=== PATIENT | male | born 1940 | race Caucasian/White ===

== ENCOUNTER 2020-06-21 19:42 | Inpatient (IN) | payer MEDICARE, MEDICAID ==
[~2020-06-21] VITALS: Ht 177.8 cm; Wt 71.7 kg
--- NOTE | 2020-06-21 20:18 | NUR ---
CALLED PHARMACY FOR MEDICATION: WINSOME
[2020-06-21 20:21] LABS: BASOPHILS % (AUTO) 0.6 % (0.0-2.0); EOSINOPHILS % (AUTO) 3.7 % (0.0-6.0); HEMATOCRIT 35 % (39-51); HEMOGLOBIN 11.5 g/dL (13.5-17.5); LYMPHOCYTES # (AUTO) 1.2 /CMM (0.8-4.8); LYMPHOCYTES % (AUTO) 21.7 % (20.0-44.0); MEAN CORPUSCULAR HGB CONC 33 g/dl (31.0-36.0); MEAN CORPUSCULAR VOLUME 86 fL (80-96); MONOCYTES # (AUTO) 0.5 /CMM (0.1-1.30); MONOCYTES % (AUTO) 8.8 % (2.0-12.0); NEUTROPHILS # (AUTO) 3.7 /CMM (1.8-8.9); NEUTROPHILS % (AUTO) 65.2 % (43.0-81.0); PLATELET COUNT (AUTO) 334 /CMM (150-450); RED BLOOD CELL COUNT(AUTO) 4.06 MIL/uL (4.5-6.0); WHITE BLOOD COUNT (AUTO) 5.7 K/uL (4.3-11.0)
--- NOTE | 2020-06-21 20:22 | NUR ---
PER MD, NO BLOOD CULTURES REQUIRED.
--- NOTE | 2020-06-21 20:25 | NUR ---
PT BIB EMS TO ER BED 10 FROM [facility] FOR LEFT LEG CELLULITS. PATIENT IS AAOX3. HX OF DEMENTIA. LEFT LEG IS SWOLLEN WITH REDNESS. PURULENT DRAINAGE ON LEFT BEAL. PT IS BREATHING EVENLY AND UNLABORED ON ROOM AIR. CONNECTED TO MONITOR.
[2020-06-21] MEDS ORDERED: IV NS 0.9% 500 ML BAG IV ONE (20:30)
[2020-06-21] MEDS ORDERED: CEFAZOLIN 2 GM in IV D5W 100 ML IV ONE (20:30)
[2020-06-21 20:34] LABS: ALBUMIN 3.2 g/dL (3.4-5.0); BILIRUBIN,DIRECT 0.2 mg/dL (0.0-0.2); BILIRUBIN,TOTAL 0.5 mg/dL (0.2-1.0); CALCIUM, SERUM 9.1 mg/dL (8.5-10.1); CREATININE 0.9 mg/dL (0.6-1.3); POTASSIUM 3.9 mmol/L (3.5-5.1); TOTAL PROTEIN, SERUM 7.8 g/dL (6.4-8.2)
--- NOTE | 2020-06-21 20:57 | NUR ---
DR. ALEXANDRA SPEAKING WITH DR. BENSON
[2020-06-21] MEDS ORDERED: MORPHINE SULFATE INJ 2 MG/ML DISP.SYRIN IV PRN (21:30)
[2020-06-21] MEDS ORDERED: HYDROCODONE/APAP 5/325MG TABLET PO PRN (21:30)
[2020-06-21] MEDS ORDERED: ACETAMINOPHEN 325 MG TABLET PO PRN (21:30)
[2020-06-21] MEDS ORDERED: ZOLPIDEM TARTRATE 5 MG TABLET PO PRN (21:30)
[2020-06-21] MEDS ORDERED: Z GUARD REMEDY 2 OZ OINT TP PRN (21:30)
[2020-06-21] MEDS ORDERED: MAG HYDROX/AL HYDROX/SIMETH 30 ML UDC PO PRN (21:30)
[2020-06-21] MEDS ORDERED: MAGNESIUM HYDROXIDE 30 ML UDC PO PRN (21:30)
[2020-06-21] MEDS ORDERED: ONDANSETRON HCL/PF 4 MG/2 ML VIAL IVP PRN (21:30)
--- NOTE | 2020-06-21 21:32 | NUR ---
BED ASSIGNMENT 109
--- NOTE | 2020-06-21 21:43 | NUR ---
REPORT GIVEN TO BRANDEN NELSON FOR SHANA.
--- NOTE | 2020-06-21 21:55 | NUR ---
RN NOTE PT ARRIVED FROM ER VIA GURNEY ACCOMPANIED BY RN AND EMT. PT IS ON ROOM AIR. RESPIRATIONS UNLABORED, ALERT AND ORIENTED X 3 BUT WITH FORGETFULNESS. ORIENTED TO FACILITY. VITAL SIGNS CHECKED, COMPREHENSIVE PHYSICAL ASSESSMENT COMPLETED. 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 PICTURES TAKEN. WITH RIGHT AC 18G IV PATENT AND FLUSHING WELL. PLAN OF CARE DISCUSSED, CALL LIGHT WITHIN REACH, SAFETY MEASURES IN PLACE PER PROTOCOL, BED ALARM ON, BED LOCKED AND IN LOW POSITION, SIDE RAILS UP X 3, WILL MONITOR NEW ADMISSION.
--- NOTE | 2020-06-21 21:55 | NUR ---
PATIENT TAKEN TO ASSIGNED ROOM.
[2020-06-21 22:00] VITALS: BP 126/78
--- NOTE | 2020-06-22 01:00 | NUR ---
RN NOTE PT ANGRY AND REMOVED KERLIX DRESSING ON LEFT LOWER LEG. OFFERED TO WRAP NEW DRESSING BUT PT REFUSED STATING THAT IT MAKES HIS FEEL MORE UNCOMFORTABLE.
[2020-06-22] MEDS ORDERED: CEFAZOLIN 1 GM ONE (02:58)
--- NOTE | 2020-06-22 04:00 | NUR ---
RN NOTE PT STRONGLY REFUSED TO HAVE 0400 VITAL SIGNS TAKEN.
[2020-06-22] MEDS: CEFAZOLIN 2 GM in IV D5W 100 ML IV SCH ×3 (04:44→20:11)
--- NOTE | 2020-06-22 04:45 | NUR ---
RN NOTE WITH ORDER FOR ANCEF 2GM IV. MED NOT IN OMNICELL AND NURSING ELEMENTARY SCHOOL PROFESSIONAL IS ONLY ABLE TO OBTAIN ONE 1GM VIAL FROM THE NIGHT LOCKER AND ENTIRE HOSPITAL. NOTIFIED DR. BENSON WHO STATES TO MAKE A ONE TIME ORDER FOR ANCEF 1G AND THEN CONTINUE WITH 2GM WITH EACH SUCCEEDING SCHEDULE WHEN PHARMACY IS HERE. ORDER NOTED AND CARRIED OUT.
--- NOTE | 2020-06-22 04:48 | NUR ---
RN NOTE PT STRONGLY REFUSED AM CARE AND LINEN CHANGE. PT SCREAMED "DON'T TOUCH ME."
[2020-06-22] MEDS ORDERED: CEFAZOLIN 1 GM in IV D5W 50 ML IV ONE (05:00)
--- NOTE | 2020-06-22 05:08 | NUR ---
RN NOTE MYSTERY SHOPPER AT BEDSIDE OFFERING TO DRAW BLOOD FOR AM LABS. PT STRONGLY REFUSED. EXPLAINED RISKS VS ADVANTAGES BUT PT IS YELLING "LEAVE ME ALONE. DON'T TOUCH ME!" Addendum: 06/22/20 at 0511 by BRANDEN GALLEGO RN LAB WILL COME AND TRY AGAIN LATER.
--- NOTE | 2020-06-22 05:31 | NUR ---
RN NOTE PT NOTED TO HAVE PULLED OUT RIGHT AC # 18G IV. WHEN ASKED WHY, THE PT STATES THAT THE TAPE WAS BOTHERING HIM. OFFERED TO INSERT NEW LINE AND EXPLAINED IMPORTANCE FOR MEDICATION ADMINISTRATION AND PAIN MANAGEMENT BUT PT STATES "I DON'T WANT ANYTHING IN ME! I'M SICK OF THIS. I'M GOING TO LEAVE THIS HOSPITAL. LEAVE ME ALONE." Addendum: 06/22/20 at 0616 by BRANDEN GALLEGO RN PT AGREED TO HAVE NEW LINE INSERTED IF PAIN IS LESSENED. ADMINISTERED NORCO PO FOR MODERATE PAIN PRN ORDERED. WILL COME BACK AND OFFER TO INSERT NEW LINE.
--- NOTE | 2020-06-22 06:42 | NUR ---
RN NOTE ABLE TO INSERT 22G IV ON LEFT HAND.
[2020-06-22 08:00] VITALS: BP 134/77
[2020-06-22] MEDS ORDERED: ACET325T53 PO (08:27)
[2020-06-22] MEDS ORDERED: ASCO500C17 PO (08:27)
[2020-06-22] MEDS ORDERED: MAGN400O6 PO (08:27)
[2020-06-22] MEDS ORDERED: MULT-439 PO (08:27)
[2020-06-22] MEDS ORDERED: QUET25TA PO (08:27)
[2020-06-22] MEDS ORDERED: CALC-883 PO (08:27)
[2020-06-22] MEDS ORDERED: ZINC220C6 PO (08:27)
[2020-06-22] MEDS ORDERED: AMIN887L PO (08:27)
[2020-06-22] MEDS ORDERED: HYDR-4303 PO (08:27)
[2020-06-22] MEDS ORDERED: FURO-145 PO (08:27)
[2020-06-22] MEDS ORDERED: CALC355O18 PO (08:27)
[2020-06-22 08:46] LABS: BASOPHILS % (AUTO) 0.9 % (0.0-2.0); EOSINOPHILS % (AUTO) 4.9 % (0.0-6.0); HEMATOCRIT 32 % (39-51); HEMOGLOBIN 10.6 g/dL (13.5-17.5); LYMPHOCYTES # (AUTO) 1.1 /CMM (0.8-4.8); LYMPHOCYTES % (AUTO) 22.6 % (20.0-44.0); MEAN CORPUSCULAR HGB CONC 33 g/dl (31.0-36.0); MEAN CORPUSCULAR VOLUME 87 fL (80-96); MONOCYTES # (AUTO) 0.6 /CMM (0.1-1.30); NEUTROPHILS # (AUTO) 2.8 /CMM (1.8-8.9); NEUTROPHILS % (AUTO) 58.6 % (43.0-81.0); PLATELET COUNT (AUTO) 301 /CMM (150-450); RED BLOOD CELL COUNT(AUTO) 3.72 MIL/uL (4.5-6.0); WHITE BLOOD COUNT (AUTO) 4.8 K/uL (4.3-11.0)
[2020-06-22 09:21] LABS: THYROID STIMULATING HORMONE 1.918 uIU/mL (0.358-3.74)
--- NOTE | 2020-06-22 09:25 | NUR ---
PATIENT IS VERY AGITATED, WALKING AROUND ROOM/ CONSTANTLY CURSING AND ATTEMPTING TO HIT STAFF. SECURITY CALLED. RESTRAINTS PLACED AND MD INFORMED. PATIENT STATED THAT THEY ARE IN PAIN. MORPHINE WAS NOT GIVEN DUE TO PATIENT'S IV BEING INFILTRATED. EXPLAINED TO PATIENT THAT A NEW IV LINE NEEDS TO BE PLACED FOR THE PAIN MEDICATION TO BE GIVEN HOWEVER PATIENT CONTINUES TO TRY TO PHYSICAL HIT NURSE AND CURSE, STATING "NO, YOU SON OF A BITCH". AWAITING MD RESPONSE.
[2020-06-22] MEDS ORDERED: HALOPERIDOL LACTATE INJ 5 MG/ML VIAL IM ONE ×2 (10:00→15:30)
[2020-06-22 11:37] LABS: CALCIUM, SERUM 8.6 mg/dL (8.5-10.1); CREATININE 0.9 mg/dL (0.6-1.3); MAGNESIUM 2.3 mg/dL (1.8-2.4); PHOSPHORUS 3.6 mg/dL (2.5-4.9); POTASSIUM 3.8 mmol/L (3.5-5.1)
--- NOTE | 2020-06-22 12:39 | NUR ---
PATIENT CONTINUES TO BE IRRITATED/AGITATED. REFUSED TO ALLOW NEW IV SITE TO GIVE ANTIBIOTIC. WHEN INSTRUCTING THE PATIENT THAT THE ANTIBIOTICS ARE NEEDED TO HEAL HIS FOOT, HE REFUSED THE MEDICATION AND STATED "LEAVE ME ALONE".
--- NOTE | 2020-06-22 13:22 | NUR ---
PATIENT REFUSING PERSONAL/HYGIENE CARE. STATING TO "LEAVE ME THE FUCK ALONE AND GET OUT".
[2020-06-22] MEDS ORDERED: HALOPERIDOL LACTATE INJ 5 MG/ML VIAL IM PRN (14:00)
[2020-06-22] MEDS: QUETIAPINE FUMARATE 25 MG TABLET PO SCH (16:23)
--- NOTE | 2020-06-22 19:01 | NUR ---
PT CONTINUES TO REFUSE ALL CARE. ENDORSED PATIENT TO DOCK OPERATIONS SUPERVISOR NURSE FOR SHANA.
--- NOTE | 2020-06-22 20:45 | NUR ---
MS-1/EMAIL MARKETER NO MEANINGFUL NURSING ASSESSMENT CAN BE MADE AT THIS TIME. PT IS VERBALLY ABUSIVE AND PHYSICALLY AGGRESSIVE. PT REFUSING MEDICAL TREATMENT AT THIS TIME. PT SEEMS TO BE MORE DOCILE WHEN LEFT ALONE IN HIS ROOM. SITTER PRESENT AT DOORWAY TO MAINTAIN PT SAFETY. WE WILL CONTINUE TO MONITOR THE PT CLOSELY FOR HIS SAFETY. AWAITING PSYCH CONSULT ALL PAPERWORK HAVE BEEN FAXED. WILL CONTINUE TO MAINTAIN A SAFE ENVIRONMENT FOR THE PT UNTIL HE CAN BE EVALUATED BY THE PSYCH TEAM.
[2020-06-23] MEDS: CEFAZOLIN 2 GM in IV D5W 100 ML IV SCH (04:18)
--- NOTE | 2020-06-23 04:51 | NUR ---
MS-1/ESTATE ATTORNEY PT TRYING TO ENTER HALLWAY NAKED. VERBALLY ABUSING STAFF. I SET STRICT BOUNDARIES WITH THE PT THAT HE CAN NOT SPEAK TO US WITH FOUL LANGUAGE. PT IS BACK IN HIS ROOM. SITTER WATCHING PT FROM DOORWAY TO ENSURE PT SAFETY.
--- NOTE | 2020-06-23 06:43 | NUR ---
MS-1/JACK STRIP ASSEMBLER REPORT TO SOON RN FOR CONTINUITY OF CARE.
--- NOTE | 2020-06-23 07:58 | NUR ---
called to in take for crise team stated have to medicalley clear by MD , Notified to MD and stated that medically clear and nofified to intake
--- NOTE | 2020-06-23 08:35 | NUR ---
spoked to Shruthi [phone] re;case stated that will come to see him late nursing supervisor wound was notified
[2020-06-23] MEDS ORDERED: FUROSEMIDE 20 MG TABLET PO SCH (09:00)
--- NOTE | 2020-06-23 09:30 | NUR ---
patient able to take oral medication
[2020-06-23] MEDS: QUETIAPINE FUMARATE 25 MG TABLET PO SCH ×2 (09:41→16:55)
--- NOTE | 2020-06-23 10:10 | NUR ---
travis team came in at this time
--- NOTE | 2020-06-23 10:47 | NUR ---
able to assess patient now DX of cellulitis both leg, left leg open to air right leg is dry elevated with pillows
[2020-06-23 12:00] VITALS: BP 145/67
[2020-06-23] MEDS ORDERED: SULFAMETH/TRIMETH 800/160 MG 1 UDTAB TABLET PO SCH (12:00)
--- NOTE | 2020-06-23 12:00 | NUR ---
seen by and exam to patient at this time
[2020-06-23] MEDS ORDERED: CLINDAMYCIN HCL 150 MG CAPSULE PO SCH (13:00)
--- NOTE | 2020-06-23 13:03 | NUR ---
patient taken po medication well without problems
[2020-06-23 16:00] VITALS: BP_SYST 115; BP_SYST 150; BP_DIAS 74; BP_DIAS 79
[2020-06-23] MEDS ORDERED: QUETIAPINE FUMARATE 25 MG TABLET PO PRN (17:30)
--- NOTE | 2020-06-23 19:00 | NUR ---
condition unchanged from previous assessment Dr.Tim Truong came to see the patient and left leg dressing changed patient will go to room 212-2
[2020-06-23] MEDS ORDERED: Sulfameth/Trimeth 800/160 Mg PO (19:07)
[2020-06-23] MEDS ORDERED: CLIN-27 PO (19:07)
[2020-06-23] MEDS ORDERED: QUET25TA PO (19:07)
[2020-06-23] MEDS ORDERED: HALO5VIA9 IM (19:07)
--- NOTE | 2020-06-23 19:10 | NUR ---
RN OPENING NOTE RECEIVED PATIENT IN BED RESTING ALERT ORIENTED X2 VERBALLY RESPONSIVE ON ROOM AIR NO SOB NOT ACUTE DISTRESS NOTED,AMBULATORY WITH ASSIST CONTINENT TO BOWEL/BLADDER,PATIENT HAS SITTER ONE TO ONE,DUE TO AGITATION,SAFETY MEASURE IMPLEMENTED,BED IN LOW POSITION AND LOCKED,BED ALARM IS ON CONTINUE TO MONITOR.
--- NOTE | 2020-06-23 20:11 | NUR ---
RN NOTE LAB CALLED AND INFORMED CANCELLED HIS LABS BECAUSE HE REFUSED ALREADY THREE TIMES CONTINUE TO MONITOR.
--- NOTE | 2020-06-23 20:52 | NUR ---
RN NOTE GAVE REPORT TO ROCHELLE NELSON AT [facility] FOR CONTINUATION OF CARE
--- NOTE | 2020-06-23 20:56 | NUR ---
RN CLOSING NOTE PATIENT TRANSFERRED TO [facility] AT ROOM 212.
[2020-06-23] MEDS ORDERED: QUETIAPINE FUMARATE 25 MG TABLET PO SCH (21:00)
[2020-06-24] MEDS ORDERED: HALO5SYR IM (07:55)
[2020-06-24] MEDS ORDERED: QUET25TA PO ×2 (07:55)
[2020-06-24] MEDS ORDERED: ZOLP5TAB8 PO (07:55)
[2020-06-24] MEDS ORDERED: ASCO-352 PO (07:55)
[2020-06-24] MEDS ORDERED: MAG30ORA PO (07:55)
[2020-06-24] MEDS ORDERED: ALLA266C2 TP (07:55)
[2020-06-24] MEDS ORDERED: SULF1TAB48 PO (07:57)
[2020-06-24] MEDS ORDERED: CLIN150C2 PO (07:57)
== END 2020-06-23 21:00 | DRG 603 ==
LOC: ER 19:47 → TELE1 21:35 → MEDSG1 06-22 00:40
PROVIDERS: ADMIT Student in an Organized Health Care Education/Training Program; ATTEND Nurse Practitioner Acute Care
DX: L03.116 Cellulitis of left lower limb (principal); E44.1 Mild protein-calorie malnutrition; F05 Delirium due to known physiological condition; I10 Essential (primary) hypertension; E86.0 Dehydration; F03.90 Unspecified dementia, unspecified severity, without behavioral disturbance, psychotic disturbance, mood disturbance, and anxiety; Z91.81 History of falling; Z79.899 Other long term (current) drug therapy; F29 Unspecified psychosis not due to a substance or known physiological condition; D64.9 Anemia, unspecified; Z20.822 Contact with and (suspected) exposure to COVID-19
CPT/HCPCS: 36415; 80048-TC; 80061-TC; 80076-TC; 82962-TC; 83690-TC; 83735-TC; 84100-TC; 84443-TC; 85025-TC; 87081-TC; C9803; G0378; J0690; J1630; J2270; J7050; J7060; U0003

== ENCOUNTER 2020-06-23 19:35 | Inpatient (IN) | payer MEDICARE, OTHER ==
[~2020-06-23] VITALS: Ht 177.8 cm; Wt 69.9 kg
[~2020-06-23 19:35] MED LIST: ACET325T53 PO; AMIN887L PO; ASCO500C17 PO; CALC-883 PO; CALC355O18 PO; CLIN-27 PO; FURO-145 PO; HALO5VIA9 IM; HYDR-4303 PO; MAGN400O6 PO; MULT-439 PO; QUET25TA PO; Sulfameth/Trimeth 800/160 Mg PO; ZINC220C6 PO
[2020-06-23] MEDS ORDERED: BLOOD SUGAR DIAGNOSTIC 1 EACH STRIP IN ONE (21:00)
[2020-06-23] MEDS ORDERED: ACETAMINOPHEN 325 MG TABLET PO PRN (21:00)
[2020-06-23] MEDS ORDERED: MAGNESIUM HYDROXIDE 30 ML UDC PO PRN (21:00)
[2020-06-23] MEDS ORDERED: TEMAZEPAM 7.5 MG CAPSULE PO PRN (21:00)
[2020-06-23] MEDS ORDERED: MAG HYDROX/AL HYDROX/SIMETH 30 ML UDC PO PRN (21:00)
[2020-06-23] MEDS ORDERED: LORAZEPAM 0.5 MG TABLET PO PRN (21:00)
[2020-06-23 21:30] VITALS: BP 146/70
--- NOTE | 2020-06-23 21:30 | NUR ---
GPS CHEMIST ENZYMES NOTES: ADMITTED THIS 80-Y/O, MALE, FROM [facility], ORIGINALLY PATIENT CAME FROM [facility]. PATIENT ADMITTED ON 5150 DTO/GD. PER HOLD, PATIENT HAS BEEN AGITATED AND AGGRESSIVE ON THE MEDICAL FLOOR. PATIENT HAS BEEN CONFUSED AND VERBALLY ABUSIVE TO NURSING STAFF. UPON FACE TO FACE ASSESSMENT, PATIENT IS A&OX2, ANGRY AFFECT, VERBALLY ABUSIVE TOWARDS STAFF, EASILY GETS AGITATED. PATIENT WAS ADVISED OF HIS HOLD. PATIENT IS UNDER THE PSYCH CARE OF DR. LANZA AND THE MEDICAL CARE OF DR. OCONNOR. PT HANDBOOK GIVEN WITH PATIENT'S RIGHTS AND GUIDE TO PRESCRIPTIONS. PT BELONGINGS WERE INVENTORIED AND CHECKED FOR CONTRABAND. DENIES PAIN OR DISCOMFORT AT THIS TIME. SAFETY PRECAUTIONS IN PLACE. WILL CONTINUE TO MONITOR Q15MIN ROUNDS FOR SAFETY AND BEHAVIOR. Addendum: 06/24/20 at 0623 by KHANG LOCKETT RN PATIENT REFUSED FLU VACCINE WHEN OFFERED. SKIN ASSESSMENT DONE. WOUND CARE CONSULT ORDERED.
[2020-06-23] MEDS ORDERED: HYDROCODONE/APAP 5/325MG TABLET PO PRN (22:30)
[2020-06-23] MEDS: CLINDAMYCIN HCL 150 MG CAPSULE PO SCH (22:46)
[2020-06-23] MEDS: SULFAMETH/TRIMETH 800/160 MG 1 UDTAB TABLET PO SCH (22:47)
[2020-06-24] MEDS ORDERED: ZOLP5TAB8 PO (07:55)
[2020-06-24] MEDS ORDERED: ALLA266C2 TP (07:55)
[2020-06-24] MEDS ORDERED: HALO5SYR IM (07:55)
[2020-06-24] MEDS ORDERED: QUET25TA PO ×2 (07:55)
[2020-06-24] MEDS ORDERED: ASCO-352 PO (07:55)
[2020-06-24] MEDS ORDERED: MAG30ORA PO (07:55)
[2020-06-24] MEDS ORDERED: CLIN150C2 PO (07:57)
[2020-06-24] MEDS ORDERED: SULF1TAB48 PO (07:57)
[2020-06-24 08:00] VITALS: BP 132/60
[2020-06-24] MEDS ORDERED: MAGNESIUM HYDROXIDE 30 ML UDC PO PRN (08:30)
[2020-06-24] MEDS ORDERED: ACETAMINOPHEN 325 MG TABLET PO PRN (08:30)
[2020-06-24] MEDS ORDERED: MAG HYDROX/AL HYDROX/SIMETH 30 ML UDC PO PRN (08:30)
[2020-06-24] MEDS ORDERED: SULFAMETH/TRIMETH 800/160 MG 1 UDTAB TABLET PO SCH (09:00)
[2020-06-24] MEDS ORDERED: FUROSEMIDE 20 MG TABLET PO SCH (09:00)
[2020-06-24] MEDS: SULFAMETH/TRIMETH 800/160 MG 1 UDTAB TABLET PO SCH ×2 (09:33→21:32)
[2020-06-24] MEDS: CLINDAMYCIN HCL 150 MG CAPSULE PO SCH ×3 (09:33→21:35)
[2020-06-24] MEDS: ASCORBIC ACID 500 MG TABLET PO SCH (09:33)
[2020-06-24] MEDS: ZINC SULFATE 220 MG CAPSULE PO SCH (09:33)
[2020-06-24] MEDS: MULTIVIT W/MINERALS 1 TAB TABLET PO SCH (09:33)
[2020-06-24] MEDS: FUROSEMIDE 20 MG TABLET PO SCH (09:33)
[2020-06-24] MEDS: PROSOURCE / PROSTAT (PYXIS) 30 ML UDC PO SCH ×2 (09:34→16:32)
[2020-06-24] MEDS: Z GUARD REMEDY 2 OZ OINT TP SCH (09:34)
[2020-06-24] MEDS: CALCIUM CARB 600MG /VIT D 1 EACH TABLET PO SCH (09:34)
[2020-06-24 09:59] LABS: CHOLESTEROL 105 mg/dL (<200); HDL CHOLESTEROL 55 mg/dL (40-60); LDL 44 mg/dL (0-99); TRIGLYCERIDES 37 mg/dL (30-150)
[2020-06-24 10:27] LABS: CREATININE 0.9 mg/dL (0.6-1.3)
[2020-06-24] MEDS ORDERED: QUETIAPINE FUMARATE 25 MG TABLET PO PRN (11:30)
[2020-06-24] MEDS ORDERED: CLINDAMYCIN HCL 150 MG CAPSULE PO SCH (13:00)
[2020-06-24] MEDS: QUETIAPINE FUMARATE 25 MG TABLET PO SCH ×3 (13:22→21:32)
[2020-06-24 16:00] VITALS: BP 118/57
[2020-06-24 20:00] VITALS: BP 128/68
[2020-06-25 08:00] VITALS: BP 159/86
[2020-06-25] MEDS: MULTIVIT W/MINERALS 1 TAB TABLET PO SCH (08:34)
[2020-06-25] MEDS: CALCIUM CARB 600MG /VIT D 1 EACH TABLET PO SCH (08:34)
[2020-06-25] MEDS: CLINDAMYCIN HCL 150 MG CAPSULE PO SCH ×3 (08:34→21:38)
[2020-06-25] MEDS: FUROSEMIDE 20 MG TABLET PO SCH (08:34)
[2020-06-25] MEDS: SULFAMETH/TRIMETH 800/160 MG 1 UDTAB TABLET PO SCH ×2 (08:34→21:38)
[2020-06-25] MEDS: ZINC SULFATE 220 MG CAPSULE PO SCH (08:34)
[2020-06-25] MEDS: QUETIAPINE FUMARATE 25 MG TABLET PO SCH ×3 (08:34→21:38)
[2020-06-25] MEDS: ASCORBIC ACID 500 MG TABLET PO SCH (08:36)
[2020-06-25] MEDS: Z GUARD REMEDY 2 OZ OINT TP SCH (08:54)
[2020-06-25] MEDS: PROSOURCE / PROSTAT (PYXIS) 30 ML UDC PO SCH ×2 (08:54→17:20)
--- NOTE | 2020-06-25 10:31 | NUR ---
WOUND CARE CONSULT: PT PRESENTS WITH DRESSING TO LEFT LOWER LEG AND REFUSED TO HAVE DRESSING REMOVED. RECOMMEND DPM CONSULT. DR MARIN NOTIFIED OF CONSULT REQUEST. IN AGREEMENT WITH PLAN OF CARE.
--- NOTE | 2020-06-25 12:35 | NUR ---
RN NOTE: MEDICATION REFUSAL PT REFUSED 1300 CLINDAMYCIN. ATTEMPTED TO EDUCATE PT RE IMPORTANCE OF MEDICATION COMPLIANCE IN RELATION TO LLE CELLULITIS. "FUCK YOU". PT CONT'D TO REFUSE X 3.
--- NOTE | 2020-06-25 14:34 | NUR ---
SNF Contact: KAT called [facility] and spoke to the social services coordinator to get some information on the pt and she stated that she will call me back. Addendum: 06/26/20 at 1111 by KAT ALEMAN Laura*
[2020-06-25 16:00] VITALS: BP 145/87
--- NOTE | 2020-06-25 16:14 | NUR ---
RN NOTE: CONSENT CONSENT ORDERED FOR SERIAL DEBRIDEMENTS TO LLE. NO SIGNIFICANT OTHER TO CONTACT.
[2020-06-25 20:26] VITALS: BP 162/82
[2020-06-25 23:00] VITALS: BP 147/82
[2020-06-26] MEDS: HYDROCODONE/APAP 5/325MG TABLET PO PRN (06:11)
--- NOTE | 2020-06-26 06:36 | NUR ---
RN NOTES PT REPORTED PAIN NORCO 5-325MG GIVEN AND TOLERATED WELL. WILL CONTINUE TO MONITOR.
[2020-06-26 08:00] VITALS: BP 143/70
[2020-06-26] MEDS: CALCIUM CARB 600MG /VIT D 1 EACH TABLET PO SCH (09:06)
[2020-06-26] MEDS: ZINC SULFATE 220 MG CAPSULE PO SCH (09:06)
[2020-06-26] MEDS: QUETIAPINE FUMARATE 25 MG TABLET PO SCH ×3 (09:06→22:00)
[2020-06-26] MEDS: CLINDAMYCIN HCL 150 MG CAPSULE PO SCH ×3 (09:06→21:00)
[2020-06-26] MEDS: SULFAMETH/TRIMETH 800/160 MG 1 UDTAB TABLET PO SCH ×2 (09:06→21:00)
[2020-06-26] MEDS: MULTIVIT W/MINERALS 1 TAB TABLET PO SCH (09:06)
[2020-06-26] MEDS: ASCORBIC ACID 500 MG TABLET PO SCH (09:06)
[2020-06-26] MEDS: FUROSEMIDE 20 MG TABLET PO SCH (09:06)
[2020-06-26] MEDS: Z GUARD REMEDY 2 OZ OINT TP SCH (09:08)
[2020-06-26] MEDS: PROSOURCE / PROSTAT (PYXIS) 30 ML UDC PO SCH ×2 (09:37→17:53)
--- NOTE | 2020-06-26 11:31 | NUR ---
SNF Contact: SW called [facility] and spoke to the clinical social work aide Taran who stated that he does not have any information to provide on this pt because they do not have much information on him in general.
--- NOTE | 2020-06-26 11:33 | NUR ---
SNF Contact: SW called [facility] and spoke to the marketing services coordinator, Belinda, who stated that the pt can return to their facility.
--- NOTE | 2020-06-26 11:48 | NUR ---
RN NOTE: WOUND CARE WOUND CARE ADMINISTERED TO PT'S LEFT LOWER LEG EXTREMITY WITH [id number] PAD. SCANT AMT OF SEROSANGUINEOUS DRAINAGE NOTED. HEALTHY GRANULATION AT SITE NOTED.
--- NOTE | 2020-06-26 13:53 | NUR ---
Initial Discharge Plan: Pt currently resides at [facility] located at [facility] [place] [address]; . Per pt, he would like to go back to the facility. SW will work with the pt and the MD regarding appropriate discharge planning. SW will form a safe and proper discharge plan.
[2020-06-26 16:00] VITALS: BP 154/90
[2020-06-26 19:39] VITALS: BP 143/92
[2020-06-26 20:09] VITALS: BP 143/92
--- NOTE | 2020-06-26 21:37 | NUR ---
GPS-RN NOTE: MEDICATION REFUSAL PATIENT REFUSED TO TAKE BACTRIM DS & CLEOCIN ANTIBIOTIC AT 2100. PATIENT KEPT SAYING," GO AWAY, LEAVE ME ALONE." EDUCATED PATIENT REGARDING MEDICATION COMPLIANCE BUT PATIENT CONTINUED TO REFUSE AND BECAME RESTLESS, ANXIOUS & AGITATED WHEN OFFERING SCHEDULED MEDS.
--- NOTE | 2020-06-26 22:40 | NUR ---
GPS-RN NOTE: MEDICATION REFUSAL PATIENT REFUSED TO TAKE SEROQUEL 25 MG [id number]. PATIENT KEEPS REPEATING," GO AWAY, LET ME REST, LEAVE ME ALONE." EDUCATED PATIENT REGARDING MEDICATION COMPLIANCE BUT PATIENT CONTINUED TO REFUSE AND BECAME RESTLESS, ANXIOUS & AGITATED WHEN OFFERING SCHEDULED MEDS & COVERS HIS FACE.
[2020-06-27 08:00] VITALS: BP 127/67
[2020-06-27] MEDS: MULTIVIT W/MINERALS 1 TAB TABLET PO SCH ×2 (08:28→09:00)
[2020-06-27] MEDS: FUROSEMIDE 20 MG TABLET PO SCH ×2 (08:28→09:00)
[2020-06-27] MEDS: ASCORBIC ACID 500 MG TABLET PO SCH ×2 (08:28→09:00)
[2020-06-27] MEDS: CALCIUM CARB 600MG /VIT D 1 EACH TABLET PO SCH ×2 (08:28→09:00)
[2020-06-27] MEDS: SULFAMETH/TRIMETH 800/160 MG 1 UDTAB TABLET PO SCH ×3 (08:28→21:11)
[2020-06-27] MEDS: ZINC SULFATE 220 MG CAPSULE PO SCH ×2 (08:28→09:00)
[2020-06-27] MEDS: QUETIAPINE FUMARATE 25 MG TABLET PO SCH ×5 (08:28→21:11)
[2020-06-27] MEDS: CLINDAMYCIN HCL 150 MG CAPSULE PO SCH ×4 (08:28→21:11)
[2020-06-27] MEDS: Z GUARD REMEDY 2 OZ OINT TP SCH (08:29)
[2020-06-27] MEDS: PROSOURCE / PROSTAT (PYXIS) 30 ML UDC PO SCH ×3 (08:56→16:44)
--- NOTE | 2020-06-27 13:31 | NUR ---
Group Note: SW encouraged the pt to attend group therapy on 06/27/20 at 1pm regarding the topic of discharge planning and the pt refused to attend. Pt is confused and disorganized and was unable to participate.
--- NOTE | 2020-06-27 13:37 | NUR ---
RN-CO: I WAS ABLE TO CONVINCED HIM TO TAKE HIS SEROQUEL 12.5 MG PO .
--- NOTE | 2020-06-27 14:22 | NUR ---
RN-CO: PATIENT IS VERY UNMOTIVATED, HE REFUSED TO FINISH HIS MEALS, REFUSED MOST OF HIS MEDICATIONS AND WOUND CARE.DR LANZA IS AWARE.
[2020-06-27 16:00] VITALS: BP 126/51
[2020-06-27] MEDS: DIVALPROEX SODIUM 125 MG CAP.SPRINK PO SCH (16:36)
--- NOTE | 2020-06-27 19:30 | NUR ---
GPS RN NOTE, RECEIVED PATIENT AWAKE AND IN BED, NO S/S OR COMPLAINTS OF PAIN AT THIS TIME. PATIENT IS DISPLAYING NO S/S OF APPARENT DISTRESS AT THIS TIME. PATIENT BREATHING IS UNLABORED WITH EQUAL RISE AND FALL OF THE CHEST. PATIENT IS ALERT AND ORIENTED X 1-2 ON ROOM AIR WITH A SPO2 98%. PATIENT IS SELECTIVE WITH MEDICATIONS, DEPRESSED, ANXIOUS AT TIMES, AND UNCOOPERATIVE. PATIENT IS REFUSING WOUND CARE. PATIENT DENIES SUICIDAL AND HOMICIDAL IDEATIONS AT THIS TIME. PATIENT ASSISTED WITH TURNING AND REPOSITIONING Q2HR AND PRN FOR COMFORT AND CIRCULATION. PATIENT HAS NO NEEDS AT THIS TIME. PATIENT EDUCATED ON THE USE OF THE CALL HENDRIX. PATIENT BED SIDE RAILS UP X 2 FOR SAFETY. PATIENT BED IS LOCKED, LOW, WITH BED ALARM ON. WILL CONTINUE TO MONITOR THIS PATIENT Q15 MINUTES WITH THE HELP OF STAFF TO MAINTAIN SAFETY.
[2020-06-27 19:42] VITALS: BP 101/55
[2020-06-27] MEDS: HYDROCODONE/APAP 5/325MG TABLET PO PRN (23:53)
--- NOTE | 2020-06-27 23:53 | NUR ---
GPS RN NOTE, PATIENT HAS A COMPLAINT OF LEFT ANKLE PAIN AT 3 OUT 10 ON THE PAIN. SCALE AND IS REQUESTING NORCO AT THIS TIME. PATIENT VITAL SIGNS ARE STABLE. GAVE NORCO 5-325 1 TAB PO Q6HR PRN ORDERED. WILL REASSESS PAIN AND I WILL CONTINUE TO MONITOR THIS PATIENT.
[2020-06-28 08:00] VITALS: BP 136/62
[2020-06-28] MEDS: ASCORBIC ACID 500 MG TABLET PO SCH (08:38)
[2020-06-28] MEDS: QUETIAPINE FUMARATE 25 MG TABLET PO SCH ×3 (08:38→21:04)
[2020-06-28] MEDS: CLINDAMYCIN HCL 150 MG CAPSULE PO SCH ×3 (08:38→20:31)
[2020-06-28] MEDS: DIVALPROEX SODIUM 125 MG CAP.SPRINK PO SCH ×2 (08:38→16:01)
[2020-06-28] MEDS: CALCIUM CARB 600MG /VIT D 1 EACH TABLET PO SCH (08:38)
[2020-06-28] MEDS: MULTIVIT W/MINERALS 1 TAB TABLET PO SCH (08:38)
[2020-06-28] MEDS: PROSOURCE / PROSTAT (PYXIS) 30 ML UDC PO SCH ×2 (08:38→16:01)
[2020-06-28] MEDS: FUROSEMIDE 20 MG TABLET PO SCH (08:38)
[2020-06-28] MEDS: ZINC SULFATE 220 MG CAPSULE PO SCH (08:38)
[2020-06-28] MEDS: Z GUARD REMEDY 2 OZ OINT TP SCH (08:39)
[2020-06-28] MEDS: SULFAMETH/TRIMETH 800/160 MG 1 UDTAB TABLET PO SCH ×2 (08:44→20:31)
--- NOTE | 2020-06-28 09:00 | NUR ---
RN NOTE- PT C/O PAIN TO PENILE MEATUS, DISTILLING DEPARTMENT SUPERVISOR ASSESSED. ORDERED TOPICAL RX, PT ALSO STATES HX BLADDER STONES. NOTIFIED DR LAZO.PT MED COMPLIANT, CONFUSED. QUIET
--- NOTE | 2020-06-28 09:12 | NUR ---
WOUND CARE FOLLOW UP: PT SEEN ON REQUEST OF NURSING STAFF FOR REDNESS TO TIP OF PENIS. RECOMMENDATIONS MADE FOR SKIN PROTECTION. DISCUSSED WITH NURSING STAFF. PT WEARS A DIAPER. MD IN AGREEMENT WITH PLAN OF CARE.
[2020-06-28] MEDS: HYDROCODONE/APAP 5/325MG TABLET PO PRN ×2 (10:48→20:02)
--- NOTE | 2020-06-28 11:31 | NUR ---
RN NOTE- DR LAZO HAD ME ORDER US KIDNEYS. R/O RENAL CALCULI. COMPLIED
[2020-06-28 16:00] VITALS: BP 107/65
[2020-06-28] MEDS: CLOTRIMAZOLE 1% 15 GM TUBE TP SCH (16:01)
[2020-06-28 16:25] LABS: BASOPHILS % (AUTO) 0.9 % (0.0-2.0); EOSINOPHILS % (AUTO) 11.9 % (0.0-6.0); HEMATOCRIT 39 % (39-51); HEMOGLOBIN 12.8 g/dL (13.5-17.5); LYMPHOCYTES # (AUTO) 1.4 /CMM (0.8-4.8); LYMPHOCYTES % (AUTO) 29.1 % (20.0-44.0); MEAN CORPUSCULAR HGB CONC 33 g/dl (31.0-36.0); MEAN CORPUSCULAR VOLUME 86 fL (80-96); MONOCYTES # (AUTO) 0.5 /CMM (0.1-1.30); MONOCYTES % (AUTO) 10.9 % (2.0-12.0); NEUTROPHILS # (AUTO) 2.2 /CMM (1.8-8.9); NEUTROPHILS % (AUTO) 47.2 % (43.0-81.0); PLATELET COUNT (AUTO) 310 /CMM (150-450); RED BLOOD CELL COUNT(AUTO) 4.55 MIL/uL (4.5-6.0); WHITE BLOOD COUNT (AUTO) 4.8 K/uL (4.3-11.0)
[2020-06-28 16:30] LABS: CALCIUM, SERUM 8.7 mg/dL (8.5-10.1); CREATININE 1.1 mg/dL (0.6-1.3); POTASSIUM 4.7 mmol/L (3.5-5.1)
--- NOTE | 2020-06-28 19:40 | NUR ---
GPS RN OPENING NOTE RECEIVED PATIENT AWAKE IN BED RESTING COMFORTABLY IN NO S/S OF APPARENT DISTRESS AT THIS TIME. PATIENT'S BREATHING IS UNLABORED WITH EQUAL RISE AND FALL OF THE CHEST. PATIENT IS ALERT AND ORIENTED X2 ON ROOM AIR WITH SPO2 >95%. PATIENT IS RESPONDING TO INTERNAL STIMULI, CALM AND COOPERATIVE AT THIS TIME. PATIENT VERBALIZED MILD PAIN CONCENTRATING IN THE PERINEAL AREA, WILL CHECK FOR PRN MEDS TO ADDRESS DISCOMFORT PERIODS.BEARING MACHINE OPERATOR MADE AWARE. PATIENT DENIES SUICIDE IDEATIONS AND HOMICIDAL IDEATIONS AT THIS TIME. PATIENT ASSISTED WITH TURNING AND REPOSITIONING Q2HR AND PRN FOR COMFORT AND CIRCULATION. PATIENT EDUCATED ON THE USE OF THE CALL LIGHT. PATIENT BED SIDE RAILS UP X 2 FOR SAFETY, BED IS LOCKED AND LOW. WILL CONTINUE TO MONITOR AND ASESS Q15 MINS WITH THE HELP OF STAFF TO MAINTAIN SAFETY.
[2020-06-28 19:57] VITALS: BP 126/71
--- NOTE | 2020-06-29 06:51 | NUR ---
GPS RN CLOSING NOTES: PT IS LAYING ON BED AWAKE, ALERT AND ORIENTED X2. RESPIRATION EVEN AND UNLABORED WITH EQUAL RISE AND FALL OF THE CHEST. ALL CARE NEEDS, TREATMENT AND MEDICATIONS ADMINISTERED ANTICIPATED PER ORDER. PT IS MED COMPLIANT. THIS SHIFT PT HAD NORCO PO PRN FOR PAIN. PT HAD BEEN COOPERATIVE MOST O THE TIME BUT ALSO HAD EPISODES OF CONFUSION AND RESTLESSNESS. SAFETY PRECAUTION TAKEN. BED IN LOWEST LOCKED POSITION, SIDE RAILS UPX2, CALL LIGHT WITHIN REACH. WILL ENDORSE TO CONTINUE TO MONITOR [id number] AND Q1HR PER GPS PROTOCOL FOR SAFETY, MOOD AND BEHAVIOR AND ENDORSE TO AM SHIFT.
[2020-06-29 08:00] VITALS: BP 113/63
[2020-06-29] MEDS: ASCORBIC ACID 500 MG TABLET PO SCH (09:00)
[2020-06-29] MEDS: MULTIVIT W/MINERALS 1 TAB TABLET PO SCH (09:00)
[2020-06-29] MEDS: CALCIUM CARB 600MG /VIT D 1 EACH TABLET PO SCH (09:00)
[2020-06-29] MEDS: CLINDAMYCIN HCL 150 MG CAPSULE PO SCH ×3 (09:00→21:59)
[2020-06-29] MEDS: PROSOURCE / PROSTAT (PYXIS) 30 ML UDC PO SCH ×2 (09:00→17:00)
[2020-06-29] MEDS: FUROSEMIDE 20 MG TABLET PO SCH (09:00)
[2020-06-29] MEDS: SULFAMETH/TRIMETH 800/160 MG 1 UDTAB TABLET PO SCH ×2 (09:00→21:59)
[2020-06-29] MEDS: ZINC SULFATE 220 MG CAPSULE PO SCH (09:00)
[2020-06-29] MEDS: QUETIAPINE FUMARATE 25 MG TABLET PO SCH ×3 (09:00→21:59)
[2020-06-29] MEDS: CLOTRIMAZOLE 1% 15 GM TUBE TP SCH ×2 (09:00→17:00)
[2020-06-29] MEDS: Z GUARD REMEDY 2 OZ OINT TP SCH (09:00)
[2020-06-29] MEDS: DIVALPROEX SODIUM 125 MG CAP.SPRINK PO SCH ×2 (09:00→17:00)
--- NOTE | 2020-06-29 11:21 | NUR ---
REFUSING ALL AM MEDS AT THIS TIME. STATES HE WANTS TO BE LEFT ALONE.SIDE RAILS UP AND BED ALARM ON.
[2020-06-29] MEDS: HYDROCODONE/APAP 5/325MG TABLET PO PRN ×2 (12:50→23:17)
--- NOTE | 2020-06-29 12:54 | NUR ---
STILL REFUSING ALL MEDS THUS FAR TODAY.DR. KELLEY LAZO INFORMED.
--- NOTE | 2020-06-29 17:58 | NUR ---
REFUSED 1700 MEDS.
--- NOTE | 2020-06-29 19:35 | NUR ---
GPS RN NOTES RECEIVED SOUND ASLEEP ON HIS BED IN THE ROOM,BREATHING NORMAL,WITH UNSTEDAY GAIT PER REPORT,FALL PRECAUTION OBSERVED,BED ON LOWEST POSITION AND LOCKED,BED ALARM TRIGGERED.WILL CONTINUE TO MONITOR BEHAVIOR.
[2020-06-29 20:00] VITALS: BP 142/82
[2020-06-29 20:50] VITALS: BP 142/82
--- NOTE | 2020-06-29 23:17 | NUR ---
GPS RN NOTES C/O PAIN ON BILATERAL FOOT.MEDICATED WITH NORCO 5/325MG,1TAB PO ORDERED.
--- NOTE | 2020-06-30 06:29 | NUR ---
GPS RN NOTES NO SIGNIFICANT CHANGE IN STATUS,MED COMPLIANT,DON'T CRUSH MEDS.
[2020-06-30 08:00] VITALS: BP 134/71
[2020-06-30] MEDS: FUROSEMIDE 20 MG TABLET PO SCH (09:22)
[2020-06-30] MEDS: ZINC SULFATE 220 MG CAPSULE PO SCH (09:22)
[2020-06-30] MEDS: CLINDAMYCIN HCL 150 MG CAPSULE PO SCH ×3 (09:22→21:55)
[2020-06-30] MEDS: DIVALPROEX SODIUM 125 MG CAP.SPRINK PO SCH ×2 (09:22→16:48)
[2020-06-30] MEDS: SULFAMETH/TRIMETH 800/160 MG 1 UDTAB TABLET PO SCH ×2 (09:22→21:54)
[2020-06-30] MEDS: CALCIUM CARB 600MG /VIT D 1 EACH TABLET PO SCH (09:22)
[2020-06-30] MEDS: QUETIAPINE FUMARATE 25 MG TABLET PO SCH ×3 (09:22→21:55)
[2020-06-30] MEDS: ASCORBIC ACID 500 MG TABLET PO SCH (09:23)
[2020-06-30] MEDS: MULTIVIT W/MINERALS 1 TAB TABLET PO SCH (09:23)
[2020-06-30] MEDS: Z GUARD REMEDY 2 OZ OINT TP SCH (09:23)
[2020-06-30] MEDS: PROSOURCE / PROSTAT (PYXIS) 30 ML UDC PO SCH ×2 (09:24→16:54)
[2020-06-30] MEDS: CLOTRIMAZOLE 1% 15 GM TUBE TP SCH ×2 (09:26→16:49)
[2020-06-30 16:00] VITALS: BP 157/76
[2020-06-30 20:00] VITALS: BP 118/63
[2020-06-30] MEDS: TAMSULOSIN 0.4 MG CAP.SR.24H PO SCH (21:54)
[2020-06-30] MEDS: FINASTERIDE (5 MG) 5 MG TABLET PO SCH (21:55)
[2020-06-30] MEDS: HYDROCODONE/APAP 5/325MG TABLET PO PRN (22:20)
--- NOTE | 2020-06-30 22:26 | NUR ---
GPS RN NOTES: PATIENT C/O LOWER LEG PAIN. NORCO 5/325MG 1 TAB GIVEN PO PRN ORDERED AT 2220. WILL CONTINUE TO MONITOR.
--- NOTE | 2020-07-01 07:06 | NUR ---
GPS RN CLOSING NOTES: PATIENT AWAKE, A/O X2. PATIENT SLEPT 7HRS THIS SHIFT. WEEKLY SKIN ASSESSMENT DONE, PICTURES TAKEN AND PLACED IN PATIENT CHAT. NO S/S OF DISTRESS. RESPIRATION EVEN AND UNLABORED WITH EQUAL RISE AND FALL OF THE CHEST ON ROOM AIR. ALL PATIENT CARE NEEDS HAVE BEEN MET ANTICIPATED. BED IN LOWEST POSITION AND LOCKED WITH SIDE RAILS UP X2. WILL CONTINUE TO MONITOR FOR SAFETY, MOOD AND BEHAVIOR AND ENDORSE TO AM SHIFT.
[2020-07-01 08:00] VITALS: BP 146/90
--- NOTE | 2020-07-01 08:50 | NUR ---
RN NOTE- WOUND CARE DONE LLE . APPEARS TO BE RESOLVING WELL. CLEANSED W NS, PETROLEUM GAUZE APPLIED, DRY STERILE DRESSING SECURED. TOLERATED WELL. NO ERYTHEMA, EXUDATE OR WARMTH. NO PURULENCE OR ODOR. TOLERATED WELL.
--- NOTE | 2020-07-01 09:00 | NUR ---
RN NOTE- RECEIVED PATIENT ASLEEP, RESPIRATION EVEN AND UNLABORED. SKIN WARM AND DRY TO TOUCH. WOUND CARE LOWER EXTREMITY DONE. SELECTIVE MED COMPLIANCE
[2020-07-01] MEDS: CLINDAMYCIN HCL 150 MG CAPSULE PO SCH ×3 (09:08→21:05)
[2020-07-01] MEDS: FUROSEMIDE 20 MG TABLET PO SCH (09:08)
[2020-07-01] MEDS: CALCIUM CARB 600MG /VIT D 1 EACH TABLET PO SCH (09:08)
[2020-07-01] MEDS: SULFAMETH/TRIMETH 800/160 MG 1 UDTAB TABLET PO SCH ×2 (09:08→21:06)
[2020-07-01] MEDS: MULTIVIT W/MINERALS 1 TAB TABLET PO SCH (09:09)
[2020-07-01] MEDS: PROSOURCE / PROSTAT (PYXIS) 30 ML UDC PO SCH ×2 (09:09→16:18)
[2020-07-01] MEDS: DIVALPROEX SODIUM 125 MG CAP.SPRINK PO SCH ×3 (09:09→16:18)
[2020-07-01] MEDS: Z GUARD REMEDY 2 OZ OINT TP SCH (09:09)
[2020-07-01] MEDS: CLOTRIMAZOLE 1% 15 GM TUBE TP SCH ×2 (09:09→16:19)
[2020-07-01] MEDS: ASCORBIC ACID 500 MG TABLET PO SCH (09:09)
[2020-07-01] MEDS: ZINC SULFATE 220 MG CAPSULE PO SCH (09:09)
[2020-07-01] MEDS: QUETIAPINE FUMARATE 25 MG TABLET PO SCH ×3 (09:09→21:05)
[2020-07-01] MEDS: HYDROCODONE/APAP 5/325MG TABLET PO PRN (14:15)
[2020-07-01 16:00] VITALS: BP 113/65
[2020-07-01 20:00] VITALS: BP 116/70
[2020-07-01] MEDS: TAMSULOSIN 0.4 MG CAP.SR.24H PO SCH (21:05)
[2020-07-01] MEDS: FINASTERIDE (5 MG) 5 MG TABLET PO SCH (21:06)
[2020-07-02 08:00] VITALS: BP 119/73
[2020-07-02] MEDS: CLINDAMYCIN HCL 150 MG CAPSULE PO SCH ×3 (08:35→21:07)
[2020-07-02] MEDS: PROSOURCE / PROSTAT (PYXIS) 30 ML UDC PO SCH ×2 (08:35→16:33)
[2020-07-02] MEDS: MULTIVIT W/MINERALS 1 TAB TABLET PO SCH (08:35)
[2020-07-02] MEDS: ASCORBIC ACID 500 MG TABLET PO SCH (08:35)
[2020-07-02] MEDS: CALCIUM CARB 600MG /VIT D 1 EACH TABLET PO SCH (08:35)
[2020-07-02] MEDS: FUROSEMIDE 20 MG TABLET PO SCH (08:35)
[2020-07-02] MEDS: QUETIAPINE FUMARATE 25 MG TABLET PO SCH ×3 (08:35→21:07)
[2020-07-02] MEDS: DIVALPROEX SODIUM 125 MG CAP.SPRINK PO SCH ×3 (08:35→16:33)
[2020-07-02] MEDS: SULFAMETH/TRIMETH 800/160 MG 1 UDTAB TABLET PO SCH ×2 (08:35→21:06)
[2020-07-02] MEDS: ZINC SULFATE 220 MG CAPSULE PO SCH (08:35)
[2020-07-02] MEDS: CLOTRIMAZOLE 1% 15 GM TUBE TP SCH ×2 (08:35→16:33)
[2020-07-02] MEDS: Z GUARD REMEDY 2 OZ OINT TP SCH (08:35)
--- NOTE | 2020-07-02 09:00 | NUR ---
PT SLEEPING EASILY AWAKENED, MED COMPLIANT THOUGH IT TAKES TIME. PT OPPOSITIONAL AT TIMES TO CARE. RX FOR PAIN W NORCO WHEN NEEDED. CONFUSED AND ORIENTED TO SELF ONLY
[2020-07-02] MEDS: HYDROCODONE/APAP 5/325MG TABLET PO PRN (10:28)
[2020-07-02 16:00] VITALS: BP 110/61
[2020-07-02 20:45] VITALS: BP 140/74
[2020-07-02] MEDS: TAMSULOSIN 0.4 MG CAP.SR.24H PO SCH (21:06)
[2020-07-02] MEDS: FINASTERIDE (5 MG) 5 MG TABLET PO SCH (21:07)
--- NOTE | 2020-07-03 07:30 | NUR ---
PT RECEIVED RESTING COMFORTABLY IN BED. NO S/S OR C/O PAIN OR DISTRESS NOTED. SIDE RAILS UP X2, WILL CONTINUE PLAN OF CARE.
[2020-07-03 08:00] VITALS: BP 139/81
[2020-07-03] MEDS: Z GUARD REMEDY 2 OZ OINT TP SCH (09:00)
[2020-07-03] MEDS: CLINDAMYCIN HCL 150 MG CAPSULE PO SCH ×3 (09:00→21:11)
[2020-07-03] MEDS: CLOTRIMAZOLE 1% 15 GM TUBE TP SCH ×2 (09:00→16:02)
[2020-07-03] MEDS: DIVALPROEX SODIUM 125 MG CAP.SPRINK PO SCH ×3 (09:00→16:01)
[2020-07-03] MEDS: PROSOURCE / PROSTAT (PYXIS) 30 ML UDC PO SCH ×2 (09:00→16:01)
[2020-07-03] MEDS: ASCORBIC ACID 500 MG TABLET PO SCH (10:04)
[2020-07-03] MEDS: MULTIVIT W/MINERALS 1 TAB TABLET PO SCH (10:05)
[2020-07-03] MEDS: FUROSEMIDE 20 MG TABLET PO SCH (10:05)
[2020-07-03] MEDS: SULFAMETH/TRIMETH 800/160 MG 1 UDTAB TABLET PO SCH ×2 (10:05→21:11)
[2020-07-03] MEDS: CALCIUM CARB 600MG /VIT D 1 EACH TABLET PO SCH (10:05)
[2020-07-03] MEDS: ZINC SULFATE 220 MG CAPSULE PO SCH (10:05)
[2020-07-03] MEDS: QUETIAPINE FUMARATE 25 MG TABLET PO SCH ×3 (10:05→21:11)
[2020-07-03 16:00] VITALS: BP 113/67
[2020-07-03] MEDS: HYDROCODONE/APAP 5/325MG TABLET PO PRN (16:04)
--- NOTE | 2020-07-03 18:41 | NUR ---
CHANGE OF SHIFT REPORT PT RESTING COMFORTABLY IN BED. NO S/S OR C/O PAIN OR DISTRESS NOTED. SIDE RAILS UP X2, PT KEPT CLEAN, DRY, AND COMFORTABLE. NO SIGNIFICANT CHANGE SINCE PREVIOUS SHIFT.
[2020-07-03 20:27] VITALS: BP 129/75
[2020-07-03] MEDS: FINASTERIDE (5 MG) 5 MG TABLET PO SCH (21:11)
[2020-07-03] MEDS: TAMSULOSIN 0.4 MG CAP.SR.24H PO SCH (21:11)
[2020-07-04 08:00] VITALS: BP 132/75
[2020-07-04] MEDS: DIVALPROEX SODIUM 125 MG CAP.SPRINK PO SCH ×4 (08:34→17:12)
[2020-07-04] MEDS: QUETIAPINE FUMARATE 25 MG TABLET PO SCH ×4 (08:34→22:03)
[2020-07-04] MEDS: ZINC SULFATE 220 MG CAPSULE PO SCH (09:00)
[2020-07-04] MEDS: SULFAMETH/TRIMETH 800/160 MG 1 UDTAB TABLET PO SCH ×2 (09:00→21:45)
[2020-07-04] MEDS: FUROSEMIDE 20 MG TABLET PO SCH (09:00)
[2020-07-04] MEDS: ASCORBIC ACID 500 MG TABLET PO SCH (09:00)
[2020-07-04] MEDS: CLINDAMYCIN HCL 150 MG CAPSULE PO SCH ×3 (09:00→21:45)
[2020-07-04] MEDS: PROSOURCE / PROSTAT (PYXIS) 30 ML UDC PO SCH ×2 (09:00→17:00)
[2020-07-04] MEDS: CALCIUM CARB 600MG /VIT D 1 EACH TABLET PO SCH (09:00)
[2020-07-04] MEDS: CLOTRIMAZOLE 1% 15 GM TUBE TP SCH ×2 (09:00→17:14)
[2020-07-04] MEDS: MULTIVIT W/MINERALS 1 TAB TABLET PO SCH (09:00)
[2020-07-04] MEDS: Z GUARD REMEDY 2 OZ OINT TP SCH (10:13)
--- NOTE | 2020-07-04 10:13 | NUR ---
RN-NOTES PATIENT REFUSED ALL 0900 AM MEDICATIONS DESPITE EXPLANATIONS RISK AND BENEFITS. PATIENT GETS ANGRY AND IRRITABLE. STATED" LEAVE ME ALONE I'M NOT TAKING ANY MEDICATIONS'. OFFERED X3. DR. LANZA IN THE UNIT AND MADE AWARE OF THE REFUSAL.
--- NOTE | 2020-07-04 10:17 | NUR ---
SNF Referral: KAT faxed updated notes to [facility] with attn to June to the fax number: [phone]. KAT will follow up on whether the pt will be accepted back.
--- NOTE | 2020-07-04 13:31 | NUR ---
RN-NOTES REFUSED DEPAKOTE 250MG P.O DESPITE ENCOURAGEMENT. OFFERED X3.
--- NOTE | 2020-07-04 13:42 | NUR ---
Discharge Plan Update: footwear sales coordinator, Hannah from [facility] ([address] [place] [address]; [phone]) contacted to inform that the pt has not been accepted to [facility]. Hannah requested for to fax over the patient's recent Covid results to [phone]. will fax Covid results to [facility].
[2020-07-04 16:00] VITALS: BP 115/62
[2020-07-04 20:15] VITALS: BP 125/87
[2020-07-04 20:17] VITALS: BP 125/87
[2020-07-04] MEDS: TAMSULOSIN 0.4 MG CAP.SR.24H PO SCH (21:45)
[2020-07-04] MEDS: FINASTERIDE (5 MG) 5 MG TABLET PO SCH (21:45)
--- NOTE | 2020-07-04 22:40 | NUR ---
RN NOTE PATIENT REFUSED COVID 19 ANTIGEN SPECIMEN TO BE COLLECTED AT THIS TIME. PATIENT GOT VERY ANXIOUS, RESTLESS & KEPT REPEATING," WHY WHY WHY. JUST LEAVE ME ALONE, GO AWAY" PT. IS NON COMPLAINT, UNCOOPERATIVE AT THIS TIME WITH COVID 19 ANTIGEN SPECIMEN COLLECTION. WILL TRY AGAIN IN AM IF PATIENT AGREES.
--- NOTE | 2020-07-05 05:51 | NUR ---
RN NOTE COVID 19 ANTIGEN SPECIMEN COLLECTED & SENT TO LAB.
--- NOTE | 2020-07-05 06:28 | NUR ---
RN NOTE LAB CALLED FOR RESULT OF RAPID COVID 19 ANTIGEN & IT IS POSITIVE.
--- NOTE | 2020-07-05 06:53 | NUR ---
RN NOTE PATIENT MOVED TO ROOM 217, ISOLATION ROOM. WILL CONTINUE TO MONITOR FOR ANY CHANGE OF CONDITION.
--- NOTE | 2020-07-05 06:57 | NUR ---
RN NOTE NOTIFIED DR. BENSON & NURSING INTERNATIONAL ACCOUNT REPRESENTATIVE ABOUT PATIENT'S COVID 19 ANTIGEN RAPID RESULTS WHICH CAME BACK POSITIVE. WILL ENDORSE TO AM RN FOR CONTINUITY OF CARE.
--- NOTE | 2020-07-05 07:20 | NUR ---
RN NOTE: DR. LANZA NOTIFIED NOTIFIED DR. LANZA ABOUT PATIENT'S POSITIVE COVID 19 RAPID TEST & PATIENT HAS BEEN ISOLATED & PER NURSING HEALTH PROGRAM SPECIALIST'S ADVISE PATIENT WILL BE TRANSFERRED TO [facility] ROOM [address] LANZA ALSO ASKED IF PATIENT'S ROOMMATE 212-1 WILL BE TESTED FOR COVID 19 WELL. AM CHARGE NURSE MADE AWARE.
[2020-07-05 08:00] VITALS: BP 111/73
[2020-07-05] MEDS: DIVALPROEX SODIUM 125 MG CAP.SPRINK PO SCH ×3 (08:54→17:37)
[2020-07-05] MEDS: QUETIAPINE FUMARATE 25 MG TABLET PO SCH ×4 (08:54→22:08)
[2020-07-05] MEDS: PROSOURCE / PROSTAT (PYXIS) 30 ML UDC PO SCH ×2 (09:00→17:00)
[2020-07-05] MEDS: CLINDAMYCIN HCL 150 MG CAPSULE PO SCH ×4 (09:00→22:07)
[2020-07-05] MEDS: FUROSEMIDE 20 MG TABLET PO SCH (09:00)
[2020-07-05] MEDS: ZINC SULFATE 220 MG CAPSULE PO SCH (09:00)
[2020-07-05] MEDS: CALCIUM CARB 600MG /VIT D 1 EACH TABLET PO SCH (09:00)
[2020-07-05] MEDS: SULFAMETH/TRIMETH 800/160 MG 1 UDTAB TABLET PO SCH ×3 (09:00→22:07)
[2020-07-05] MEDS: CLOTRIMAZOLE 1% 15 GM TUBE TP SCH ×2 (09:00→17:39)
[2020-07-05] MEDS: ASCORBIC ACID 500 MG TABLET PO SCH (09:00)
[2020-07-05] MEDS: Z GUARD REMEDY 2 OZ OINT TP SCH (09:00)
[2020-07-05] MEDS: MULTIVIT W/MINERALS 1 TAB TABLET PO SCH (09:00)
--- NOTE | 2020-07-05 10:05 | NUR ---
RN-NOTES PATIENT REFUSED ALL 0900 AM MEDICATIONS EXCEPT DEPAKOTE 250MG P.O EXPLANATIONS RISK AND BENEFITS BUT STILL REFUSED. PATIENT GETS ANGRY AND IRRITABLE. STATED" LEAVE ME ALONE NO MORE MEDICATIONS'. OFFERED X3. DR. LANZA IN THE UNIT AND MADE AWARE OF THE REFUSAL.
--- NOTE | 2020-07-05 10:16 | NUR ---
RN-NOTES PATIENT REFUSED KALPESH CARE AT THIS TIME.
[2020-07-05 11:50] LABS: EOSINOPHILS % (AUTO) 5.9 % (0.0-6.0); HEMATOCRIT 38 % (39-51); HEMOGLOBIN 12.5 g/dL (13.5-17.5); LYMPHOCYTES # (AUTO) 1.6 /CMM (0.8-4.8); LYMPHOCYTES % (AUTO) 34.1 % (20.0-44.0); MEAN CORPUSCULAR HGB CONC 33 g/dl (31.0-36.0); MEAN CORPUSCULAR VOLUME 85 fL (80-96); MONOCYTES # (AUTO) 0.4 /CMM (0.1-1.30); MONOCYTES % (AUTO) 8.4 % (2.0-12.0); NEUTROPHILS # (AUTO) 2.5 /CMM (1.8-8.9); NEUTROPHILS % (AUTO) 50.6 % (43.0-81.0); PLATELET COUNT (AUTO) 279 /CMM (150-450); RED BLOOD CELL COUNT(AUTO) 4.45 MIL/uL (4.5-6.0); WHITE BLOOD COUNT (AUTO) 4.8 K/uL (4.3-11.0)
[2020-07-05 11:57] LABS: POTASSIUM 4.5 mmol/L (3.5-5.1)
[2020-07-05 12:03] LABS: ALBUMIN 2.9 g/dL (3.4-5.0); BILIRUBIN,TOTAL 0.4 mg/dL (0.2-1.0); MAGNESIUM 2.1 mg/dL (1.8-2.4); TOTAL PROTEIN, SERUM 7.1 g/dL (6.4-8.2)
--- NOTE | 2020-07-05 12:21 | NUR ---
SNF Referral: KAT faxed a referral to [facility] with attn to Tatiana to the fax number: [phone].
[2020-07-05 16:00] VITALS: BP 121/70
[2020-07-05] MEDS: Z GUARD REMEDY 2 OZ OINT TP PRN (17:40)
--- NOTE | 2020-07-05 18:25 | NUR ---
RN-NOTES PATIENT IN THE ROOM AWAKE,ALERT NO ACUTE DISTRESS NOTED.PATIENT WAS PUT ON NEGATIVE PRESSURE FOR COVID- 19 POSITIVE. WILL ENDORSE TO INCOMING NURSE FOR MONITORING AND CONTINUITY OF CARE.
--- NOTE | 2020-07-05 20:00 | NUR ---
RN NOTES RECEIVED PATIENT IN BED, ALERT AND AWAKE, NO COUGHING, ROOM AIR, AFEBRILE, VSS, ON ISOLATION DUE TO COVID (+) TEST, UNKEMPT, MESSY, WILL CONTINUE TO MONITOR
[2020-07-05 20:08] VITALS: BP 133/66
[2020-07-05] MEDS: FINASTERIDE (5 MG) 5 MG TABLET PO SCH (22:07)
[2020-07-05] MEDS: TAMSULOSIN 0.4 MG CAP.SR.24H PO SCH (22:07)
--- NOTE | 2020-07-06 06:50 | NUR ---
RN NOTES ALERT AND ORIENTED X2, CAN BE AGGRESSIVE AND HOSTILE. TOOK ALL PM MEDS, ASLEEP MOST OF THE SHIFT, NO AGITATION WHEN ALONE, AWAITING COVID TEST PCR.
--- NOTE | 2020-07-06 07:03 | NUR ---
RN OPENING NOTES RECEIVED PATIENT IN RESTING COMFORTABLY IN BED AT THIS TIME. EASY TO AROUSE. BREATHING AND RESPIRATION EVEN AND UNLABORED WITH EQUAL RISE AND FALL OF THE CHEST, STABLE ON ROOM AIR. NO SOB NOTED,NO S/S OF ANY ACUTE DISTRESS. SAFETY PRECAUTIONS IN PLACE AND MAINTAINED AT ALL TIMES. BED IN LOWEST LOCKED POSITION, SIDE RAILS UP X2, CALL LIGHT AND TABLE WITHIN REACH. WILL. CONTINUE TO MONITOR Q15 MIN FOR SAFETY, MOOD AND BEHAVIOR.
[2020-07-06 08:00] VITALS: BP 150/59
[2020-07-06] MEDS: CALCIUM CARB 600MG /VIT D 1 EACH TABLET PO SCH (09:00)
[2020-07-06] MEDS: DIVALPROEX SODIUM 125 MG CAP.SPRINK PO SCH ×3 (09:00→17:24)
[2020-07-06] MEDS: CLOTRIMAZOLE 1% 15 GM TUBE TP SCH ×2 (09:00→17:16)
[2020-07-06] MEDS: ASCORBIC ACID 500 MG TABLET PO SCH (09:00)
[2020-07-06] MEDS: QUETIAPINE FUMARATE 25 MG TABLET PO SCH ×3 (09:00→21:50)
[2020-07-06] MEDS: ZINC SULFATE 220 MG CAPSULE PO SCH (09:00)
[2020-07-06] MEDS: MULTIVIT W/MINERALS 1 TAB TABLET PO SCH (09:00)
[2020-07-06] MEDS: FUROSEMIDE 20 MG TABLET PO SCH (09:00)
[2020-07-06] MEDS: PROSOURCE / PROSTAT (PYXIS) 30 ML UDC PO SCH ×2 (09:00→17:36)
[2020-07-06] MEDS: CLINDAMYCIN HCL 150 MG CAPSULE PO SCH ×3 (09:00→21:28)
[2020-07-06] MEDS: Z GUARD REMEDY 2 OZ OINT TP SCH (09:00)
[2020-07-06] MEDS: SULFAMETH/TRIMETH 800/160 MG 1 UDTAB TABLET PO SCH ×2 (09:00→21:27)
--- NOTE | 2020-07-06 10:19 | NUR ---
PT REFUSED ALL AM MEDICATIONS AT THIS TIME. ALL BENEFITS AND RISK OF REFUSING MEDICATION FOR MEDICAL TREATMENT PROVIDED, PT VERBALIZED UNDERSTANDING. CATHERINE, CHARGE NURSE AWARE. WILL F/U WITH DOCTOR. WILL CONTINUE WITH PLAN OF CARE
--- NOTE | 2020-07-06 14:32 | NUR ---
Dr. Cooper in the unit and notified for the negative PCR result for COVID and ordered to D/C isolation for COVID.
--- NOTE | 2020-07-06 14:33 | NUR ---
PT'S COVID PCR RESULT IS NEGATIVE. DR BENSON MADE AWARE. RECEIVED ORDERS FROM DR BENSON TO DC ISOLATION STATUS. ORDERS READ BACK AND CARRIED OUT. WILL CONTINUE WITH PLAN OF CARE
[2020-07-06 16:00] VITALS: BP 127/71
--- NOTE | 2020-07-06 18:31 | NUR ---
RN CLOSING NOTES PT AWAKE IN BED AT THIS TIME. PT REMAINED STABLE THROUGHOUT SHIFT. ALL PT NEEDS MET AND ATTENDED. NO PT DENIES SI/HI, VISUAL OR AUDITORY HALLUCINATION. SAFETY PRECAUTIONS IN PLACE AND MAINTAINED AT ALL TIMES. BED IN LOWEST LOCKED POSITION, HOB ELEVATED, SIDE RAILS UPX2, CALL LIGHT AND TABLE WITHIN REACH. WILL ENDORSE TO INTERACTIVE PROJECT MANAGER NURSE FOR SHANA
[2020-07-06 20:00] VITALS: BP 120/51
[2020-07-06 20:28] VITALS: BP 120/51
[2020-07-06] MEDS: FINASTERIDE (5 MG) 5 MG TABLET PO SCH (21:50)
[2020-07-06] MEDS: TAMSULOSIN 0.4 MG CAP.SR.24H PO SCH (21:50)
[2020-07-06] MEDS: HYDROCODONE/APAP 5/325MG TABLET PO PRN (22:18)
--- NOTE | 2020-07-06 22:20 | NUR ---
RN NOTE: PAIN PATIENT C/O GENERALIZED BODY PAIN 07/08, REQUESTING FOR PAIN MEDICINE, REFUSED TO TAKE TYLENOL & SAID," I NEED STRONG PAIN MEDICINE, TYLENOL IS NOT GOING TO DO ANYTHING." PRN NORCO 5-325 MG 1 TAB PO ADMINISTERED. WILL CONTINUE TO MONITOR FOR ANY SHANA.
[2020-07-07] MEDS: Z GUARD REMEDY 2 OZ OINT TP PRN (02:19)
[2020-07-07 08:00] VITALS: BP 112/61
[2020-07-07] MEDS: SULFAMETH/TRIMETH 800/160 MG 1 UDTAB TABLET PO SCH ×2 (08:26→21:44)
[2020-07-07] MEDS: CALCIUM CARB 600MG /VIT D 1 EACH TABLET PO SCH (08:26)
[2020-07-07] MEDS: MULTIVIT W/MINERALS 1 TAB TABLET PO SCH (08:27)
[2020-07-07] MEDS: PROSOURCE / PROSTAT (PYXIS) 30 ML UDC PO SCH ×2 (08:27→16:13)
[2020-07-07] MEDS: FUROSEMIDE 20 MG TABLET PO SCH (08:27)
[2020-07-07] MEDS: QUETIAPINE FUMARATE 25 MG TABLET PO SCH ×3 (08:27→22:00)
[2020-07-07] MEDS: CLINDAMYCIN HCL 150 MG CAPSULE PO SCH ×3 (08:27→21:44)
[2020-07-07] MEDS: DIVALPROEX SODIUM 125 MG CAP.SPRINK PO SCH ×3 (08:27→16:09)
[2020-07-07] MEDS: ASCORBIC ACID 500 MG TABLET PO SCH (08:28)
[2020-07-07] MEDS: ZINC SULFATE 220 MG CAPSULE PO SCH (08:28)
[2020-07-07] MEDS: CLOTRIMAZOLE 1% 15 GM TUBE TP SCH ×2 (08:28→16:13)
[2020-07-07] MEDS: Z GUARD REMEDY 2 OZ OINT TP SCH (08:28)
--- NOTE | 2020-07-07 08:30 | NUR ---
GPS RN NOTE PATIENT REFUSED ALL AM MEDS. EXPLAINED ALL RISKS AND BENEFITS TO THE PATIENT BUT STILL REFUSED. WILL CONTINUE TO MONITOR.
[2020-07-07] MEDS: HYDROCODONE/APAP 5/325MG TABLET PO PRN ×2 (14:58→22:03)
--- NOTE | 2020-07-07 15:01 | NUR ---
GPS RN NOTE: PAIN PATIENT MOANING AND VERBALIZING PAIN IN HIS PRIVATE PART. PAIN 8/10. NORCO 5/325 MG PO PRN GIVEN. WILL CONTINUE TO MONITOR THROUGHOUT THE SHIFT.
[2020-07-07 16:01] VITALS: BP 98/55
[2020-07-07 19:55] VITALS: BP 116/60
[2020-07-07 20:59] VITALS: BP 116/60
[2020-07-07] MEDS: FINASTERIDE (5 MG) 5 MG TABLET PO SCH (22:00)
[2020-07-07] MEDS: TAMSULOSIN 0.4 MG CAP.SR.24H PO SCH (22:00)
--- NOTE | 2020-07-07 22:04 | NUR ---
RN NOTE: PAIN PATIENT C/O GENERALIZED BODY PAIN 08/08, REQUESTING FOR "STRONG" PAIN MEDICINE, PRN NORCO 5-325 MG 1 TAB PO ADMINISTERED. WILL CONTINUE TO MONITOR FOR ANY SHANA.
--- NOTE | 2020-07-07 22:05 | NUR ---
RN NOTE PATIENT IS FULLY AWAKE & EATING SNACK & HAS PO FLUIDS TOLERATED.
--- NOTE | 2020-07-07 22:23 | NUR ---
GPS-RN NOTE: MEDICATION REFUSAL PATIENT REFUSED TO TAKE SEROQUEL 25 MG, FLOMAX 0.4 MG, PROSCAR 5 MG AT 2200. PATIENT GOT AGITATED, BECAME LOUD & KEPT REPEATING," WHY YOU GIVE ME SO MANY PILLS, LEAVE ME ALONE, GO AWAY." EDUCATED PATIENT REGARDING MEDICATION COMPLIANCE BUT PATIENT CONTINUED TO REFUSE AND BECAME MORE RESTLESS. GAVE HIM SPACE. WILL CONTINUE TO MONITOR.
--- NOTE | 2020-07-08 00:40 | NUR ---
RN NOTE: REFUSED FULL BODY SKIN ASSESSMENT PATIENT REFUSED FULL BODY SKIN ASSESSMENT (WEEKLY), ONLY ALLOWED TO TAKE PICTURE & ASSESS RIGHT/LEFT LEG & LEFT ARM, WAS ABLE TO DO LEFT LEG DRESSING BUT DURING ASSESSMENT PATIENT BECAME AGITATED & STARTED USING BAD WORDS & ASKED THE NURSE TO LEAVE THE ROOM. PATIENT IS NON COMPLAINT, UNCOOPERATIVE, RESTLESS, ANGRY, UNPREDICTABLE. WILL CONTINUE TO MONITOR.
[2020-07-08] MEDS: Z GUARD REMEDY 2 OZ OINT TP PRN (03:04)
[2020-07-08 08:00] VITALS: BP 165/77
[2020-07-08] MEDS: SULFAMETH/TRIMETH 800/160 MG 1 UDTAB TABLET PO SCH ×3 (08:35→21:39)
[2020-07-08] MEDS: FUROSEMIDE 20 MG TABLET PO SCH (08:35)
[2020-07-08] MEDS: CALCIUM CARB 600MG /VIT D 1 EACH TABLET PO SCH (08:35)
[2020-07-08] MEDS: CLINDAMYCIN HCL 150 MG CAPSULE PO SCH ×4 (08:35→21:39)
[2020-07-08] MEDS: ASCORBIC ACID 500 MG TABLET PO SCH (08:35)
[2020-07-08] MEDS: DIVALPROEX SODIUM 125 MG CAP.SPRINK PO SCH ×4 (08:35→16:40)
[2020-07-08] MEDS: Z GUARD REMEDY 2 OZ OINT TP SCH (08:36)
[2020-07-08] MEDS: ZINC SULFATE 220 MG CAPSULE PO SCH (08:36)
[2020-07-08] MEDS: QUETIAPINE FUMARATE 25 MG TABLET PO SCH ×4 (08:36→22:04)
[2020-07-08] MEDS: MULTIVIT W/MINERALS 1 TAB TABLET PO SCH (08:36)
[2020-07-08] MEDS: PROSOURCE / PROSTAT (PYXIS) 30 ML UDC PO SCH ×3 (08:48→16:41)
[2020-07-08] MEDS: CLOTRIMAZOLE 1% 15 GM TUBE TP SCH ×3 (08:49→17:03)
--- NOTE | 2020-07-08 09:00 | NUR ---
RN NOTE: MEDICATION REFUSAL PT REFUSED ALL 0900 MEDICATIONS. ATTEMPTED TO EDUCATE PT RE IMPORTANCE OF MEDICATION COMPLIANCE. PT CONT'D TO REFUSE X 3. PT STATED, " I DON'T NEED MEDICATIONS" WILL CONT TO MONITOR PT FOR SAFETY AND BEHAVIOR
--- NOTE | 2020-07-08 11:31 | NUR ---
SNF Contact: Tatiana ([phone]) from [facility] contacted the SW and stated that the pts Medicare days were exhausted so they will not be able to accept the pt.
--- NOTE | 2020-07-08 11:35 | NUR ---
SNF Contact: SW returned the call of Hannah ([phone]) from [facility] and she informed the SW that she received the referral from the pts previous facility and they are willing to accept to bed 35. SW stated that she will inform the MD.
--- NOTE | 2020-07-08 12:11 | NUR ---
RN NOTE: MEDICATIN REFUSAL. PT REFUSED 1300 PO MEDICATIONS. ATTEMPTED TO EDUCATE PT RE IMPORTANCE OF MEDICATION COMPLIANCE. PT CONT'D TO REFUSE X 3 WILL CONT TO MONITOR
[2020-07-08 19:43] VITALS: BP 123/77
[2020-07-08 20:00] VITALS: BP 123/77
[2020-07-08] MEDS: FINASTERIDE (5 MG) 5 MG TABLET PO SCH (22:04)
[2020-07-08] MEDS: TAMSULOSIN 0.4 MG CAP.SR.24H PO SCH (22:05)
[2020-07-09] MEDS: HYDROCODONE/APAP 5/325MG TABLET PO PRN ×2 (00:25→14:59)
--- NOTE | 2020-07-09 00:36 | NUR ---
RN NOTE: REFUSED COVID 19 ANTIGEN SPECIMEN TRIED TO OBTAIN COVID 19 ANTIGEN SPECIMEN FROM THE PATIENT FOR PLACEMENT BUT PATIENT BECAME RESTLESS, AGITATED, ANXIOUS & STATED," NO NO, I CAN'T TAKE IT, NOT AGAIN, I DON'T WANT IT." DESPITE OF EXPLANATIONS, PATIENT CONTINUED TO REFUSE STRONGLY.
--- NOTE | 2020-07-09 00:36 | NUR ---
RN NOTE: PAIN PATIENT C/O GENERALIZED BODY PAIN 08/08, REQUESTING FOR PAIN MEDICINE. PRN NORCO 5-325 MG 1 TAB PO ADMINISTERED. WILL CONTINUE TO MONITOR FOR ANY SHANA.
[2020-07-09] MEDS: Z GUARD REMEDY 2 OZ OINT TP PRN (03:33)
--- NOTE | 2020-07-09 06:11 | NUR ---
RN NOTE PATIENT REFUSED AM LABS DESPITE OF EXPLANATIONS.
--- NOTE | 2020-07-09 06:43 | NUR ---
RN NOTE COVID 19 ANTIGEN COLLECTED & SENT TO LAB.
--- NOTE | 2020-07-09 06:44 | NUR ---
RN NOTE PATIENT REFUSED URINE SPECIMEN TO BE COLLECTED, UNCOOPERATIVE & NON COMPLAINT, EASILY AGITATED, RESTLESS, STARTS SCREAMING, REPEATS," LET ME REST, LET ME REST." WILL ENDORSE TO AM NURSE TO TRY TO COLLECT URINE SPECIMEN.
[2020-07-09 08:00] VITALS: BP 157/84
[2020-07-09] MEDS: CLOTRIMAZOLE 1% 15 GM TUBE TP SCH (09:00)
[2020-07-09] MEDS: ZINC SULFATE 220 MG CAPSULE PO SCH (09:00)
[2020-07-09] MEDS: Z GUARD REMEDY 2 OZ OINT TP SCH (09:00)
[2020-07-09] MEDS: FUROSEMIDE 20 MG TABLET PO SCH (09:00)
[2020-07-09] MEDS: QUETIAPINE FUMARATE 25 MG TABLET PO SCH (09:00)
[2020-07-09] MEDS: SULFAMETH/TRIMETH 800/160 MG 1 UDTAB TABLET PO SCH (09:00)
[2020-07-09] MEDS: CLINDAMYCIN HCL 150 MG CAPSULE PO SCH ×2 (09:00→13:00)
[2020-07-09] MEDS: MULTIVIT W/MINERALS 1 TAB TABLET PO SCH (09:00)
[2020-07-09] MEDS: CALCIUM CARB 600MG /VIT D 1 EACH TABLET PO SCH (09:00)
[2020-07-09] MEDS: DIVALPROEX SODIUM 125 MG CAP.SPRINK PO SCH ×2 (09:00→13:00)
[2020-07-09] MEDS: PROSOURCE / PROSTAT (PYXIS) 30 ML UDC PO SCH (09:00)
[2020-07-09] MEDS: ASCORBIC ACID 500 MG TABLET PO SCH (09:00)
--- NOTE | 2020-07-09 12:32 | NUR ---
Discharge Note: Pt will be discharged to [facility] ([facility]) located at [address] [place] [address]; ([phone]). Pt will be transported via [facility] at 1PM to bed 35. Pt does not have anyone to notify regarding the pts discharge. Upon discharge, pt denies both suicidal and homicidal ideation as well as auditory and visual hallucinations. Pt appears to be in a dysphoric mood and presents with a distressed affect. Pt appears to be well groomed and appropriately dressed. Pt will be under the care of psychiatrist, Dr. Luna, located [address] [place] [address]; ([phone]) and auxiliary equipment operator, Dr. Dye, located at [address] [place], [place] [address], [place] [address]; ([phone]). The Choice of vendor form and the multidisciplinary exit care form were done, printed, signed, and given to the patient.
--- NOTE | 2020-07-09 16:50 | NUR ---
solo musician note:Patient discharged in stable condition to [facility] ,pt denies suicidal ideation denies homicidal ideation ,denies auditory /visual hallucination ,vs stable .Patient seen by with discharge orders ,dr. Munoz called with discharge orders ,hold discontinue with dr. Munoz .Patient refused discharge photos .all belongings returned to patient report given to Marcellus ESTRADA in SNF Patient discharged at 16:50 with ambulance .
== END 2020-07-09 15:50 | disposition still patient (30) | DRG 876 ==
LOC: GPS 19:35
PROVIDERS: ADMIT Psychiatry & Neurology Psychosomatic Medicine; ATTEND Internal Medicine
PROC: 0JBP0ZZ Excision of Left Lower Leg Subcutaneous Tissue and Fascia, Open Approach (ICD-10-PCS; principal; 2020-06-26)
DX: F25.9 Schizoaffective disorder, unspecified (principal); F01.50 Vascular dementia, unspecified severity, without behavioral disturbance, psychotic disturbance, mood disturbance, and anxiety; L03.116 Cellulitis of left lower limb; E44.1 Mild protein-calorie malnutrition; L97.921 Non-pressure chronic ulcer of unspecified part of left lower leg limited to breakdown of skin; F29 Unspecified psychosis not due to a substance or known physiological condition; F41.9 Anxiety disorder, unspecified; Z73.6 Limitation of activities due to disability; F03.90 Unspecified dementia, unspecified severity, without behavioral disturbance, psychotic disturbance, mood disturbance, and anxiety; I10 Essential (primary) hypertension; Z79.899 Other long term (current) drug therapy; D63.8 Anemia in other chronic diseases classified elsewhere; Z91.81 History of falling; I87.2 Venous insufficiency (chronic) (peripheral); N21.0 Calculus in bladder; N32.0 Bladder-neck obstruction
CPT/HCPCS: 36415; 71045-TC; 76770-TC; 80048-TC; 80053-TC; 80061-TC; 82565-TC; 83735-TC; 85025-TC; 97112-TC; 97530-TC; A6253; A6403; U0003